=== PATIENT | male | born 1945 | race Caucasian/White ===

== ENCOUNTER → 2019-07-26 | Outpatient (CLI) | payer MEDICARE, OTHER ==
[2019-07-26 12:11] LABS: ANION GAP 7 (5-19); BLOOD UREA NITROGEN 54 mg/dL (7-20); CALCIUM 9.6 mg/dL (8.4-10.2); CARBON DIOXIDE 23 mmol/L (22-30); CHLORIDE 107 mmol/L (98-107); GLUCOSE 91 mg/dL (75-110); POTASSIUM 4.9 mmol/L (3.6-5.0)
[2019-07-26 12:15] LABS: URINE CREATININE 54.6 mg/dL (22-328)
[2019-07-26 12:31] LABS: CREATININE 2.15 mg/dL (0.52-1.25)
== END ==
LOC: OD 10:54
PROVIDERS: ATTEND Internal Medicine Nephrology
DX: N17.9 Acute kidney failure, unspecified (principal)
CPT/HCPCS: 36415; 80048; 82575

== ENCOUNTER 2019-09-03 10:54 | Inpatient (IN) | payer MEDICARE, OTHER ==
[2019-09-03 11:16] LABS: ABSOLUTE BASOPHILS # (AUTO) 0.1 10^3/uL (0.0-0.2); ABSOLUTE EOSINOPHILS # (AUTO) 0.2 10^3/uL (0.0-0.6); ABSOLUTE LYMPHOCYTES (AUTO) 0.6 10^3/uL (0.5-4.7); ABSOLUTE MONOCYTES (AUTO) 1.1 10^3/uL (0.1-1.4); ABSOLUTE NEUT (AUTO) 6.8 10^3/uL (1.7-8.2); BASOPHILS % (AUTO) 0.6 % (0-2); EOSINOPHILS % (AUTO) 1.9 % (0-6); HEMOGLOBIN 11.1 g/dL (13.5-17.0); LYMPHOCYTES % (AUTO) 6.7 % (13-45); MEAN CORPUSCULAR HEMOGLOBIN 26.7 pg (27.0-33.4); MEAN CORPUSCULAR HGB CONC 32.6 g/dL (32.0-36.0); MEAN CORPUSCULAR VOLUME 82 fl (80-97); MONOCYTES % (AUTO) 12.6 % (3-13); PLATELET COUNT 127 10^3/uL (150-450); RED BLOOD COUNT 4.16 10^6/uL (4.35-5.55); RED CELL DISTRIBUTION WIDTH 31.5 % (11.5-14.0); SEGMENTED NEUTROPHILS % (AUTO) 78.2 % (42-78); TOTAL CELLS COUNTED % (AUTO) 100 %; WHITE BLOOD COUNT 8.7 10^3/uL (4.0-10.5)
[2019-09-03 11:18] LABS: VENOUS BLOOD BASE EXCESS -3.4 mmol/L; VENOUS BLOOD PH 7.35 (7.30-7.42)
--- NOTE | 2019-09-03 11:32 | ER Document Report ---
ED General - General Chief Complaint: Shortness Of Breath Stated Complaint: SHORTNESS OF BREATH Time Seen by Provider: 09/03/19 11:08 Primary Care Provider: ADITI WOLF MD [ACTIVE STAFF] - Follow up as needed Information source: Patient Notes: my notes 74-year-old male arrives with acute on chronic COPD with congestive heart failure problems. He reports dyspnea on exertion for several days. He can walk no more than 8 feet before becoming very short of breath. He also has pillow orthopnea and edema of his legs. Patient reports last January he was doing well until he went to [place] and got a demand pacer and the tip pierced his pericardium and 12 hours later he was in [place] getting the leads replaced. He also developed kidney failure and was placed on dialysis for several months with Dr. Morillo. Patient reports his kidneys are now doing quite well. His appetite is fair. He denies any productive cough. He denies any skin rashes. Denies any chest pain or abdominal swelling or back pain or cephalgia or nuchal rigidity or febrile. TRAVEL OUTSIDE OF THE [place] IN LAST 30 DAYS: No - HPI Onset: This morning Past Medical History - Social History Smoking Status: Former Smoker - quit 5 years ago but smoked 1 ppd since 14 yo Cigarette use (# per day): No Chew tobacco use (# tins/day): No Smoking Education Provided: No Frequency of alcohol use: Occasional Drug Abuse: None Lives with: Family Family History: Reviewed & Not Pertinent, COPD Patient has suicidal ideation: No Patient has homicidal ideation: No Review of Systems - Review of Systems Constitutional: No symptoms reported, Malaise, Weakness EENT: No symptoms reported Cardiovascular: See HPI, Dyspnea, Syncope Respiratory: See HPI, Short of breath Gastrointestinal: No symptoms reported Genitourinary: No symptoms reported Male Genitourinary: No symptoms reported Musculoskeletal: No symptoms reported Skin: No symptoms reported Hematologic/Lymphatic: No symptoms reported Neurological/Psychological: No symptoms reported Physical Exam - Vital signs Vitals: Resp BP Pulse Ox 23 H 147/88 H 98 09/03/19 10:54 09/03/19 10:54 09/03/19 10:54 - General General appearance: Alert - HEENT Head: Normocephalic, Atraumatic Eyes: Normal Pupils: PERRL Pharynx: Normal Neck: Normal - Respiratory Respiratory status: No respiratory distress Chest status: Nontender Breath sounds: Decreased air movement Chest palpation: Normal - Cardiovascular Rhythm: Regular Heart sounds: Normal auscultation Murmur: No - Abdominal Inspection: Normal Distension: No distension Bowel sounds: Normal Tenderness: Nontender Organomegaly: No organomegaly - Genitourinary Tenderness: Other - deferred - Back Back: Normal - Extremities General upper extremity: Normal inspection General lower extremity: Edema - +2 pitting from feet to knees - Neurological Neuro grossly intact: Yes Cognition: Normal Orientation: AAOx4 Uriel Coma Scale Eye Opening: Spontaneous [place]riel Coma Scale Verbal: Oriented [place] Coma Scale Motor: Obeys Commands Uriel Coma Scale Total: 15 Speech: Normal Motor strength normal: LUE, RUE, LLE, RLE Sensory: Normal - Psychological Associated symptoms: Normal affect - Skin Skin Temperature: Warm Skin Moisture: Dry Course - Vital Signs Vital signs: Temp Pulse Resp BP Pulse Ox 97.9 F 18 142/84 H 98 09/03/19 11:13 09/03/19 12:01 09/03/19 12:01 09/03/19 12:01 - Laboratory Result Diagrams: 09/03/19 10:59 09/03/19 10:59 Laboratory results interpreted by me: 09/03/19 09/03/19 09/03/19 10:59 10:59 10:59 RBC 4.16 L Hgb 11.1 L Hct 34.0 L MCH 26.7 L RDW 31.5 H Plt Count 127 L Lymph % (Auto) 6.7 L Seg Neutrophils % 78.2 H BUN 40 H Creatinine 2.03 H Est GFR ( Amer) 39 L Est GFR (MDRD) Non-Af 32 L Glucose 123 H NT-Pro-B Natriuret Pep [id number] H Albumin 3.4 L - Diagnostic Test Radiology reviewed: Reports reviewed - EKG Interpretation by Me EKG shows normal: Sinus rhythm Rate: Normal Rhythm: NSR Critical Care Note - Critical Care Note Total time excluding time spent on procedures (mins): 90 Comments: I advised [employer] and she advised telemetry bed Discharge - Discharge Clinical Impression: ZHAO (dyspnea on exertion), Leg edema Pneumonia Qualifiers: Pneumonia type: due to unspecified organism Laterality: right Lung location: lower lobe of lung Qualified Code(s): J18.9 - Pneumonia, unspecified organism CHF (congestive heart failure) Qualifiers: Heart failure type: unspecified Heart failure chronicity: unspecified Qualified Code(s): I50.9 - Heart failure, unspecified Condition: Good Disposition: ADMITTED INPATIENT Unit Admitted: Telemetry Referrals: ADITI WOLF MD [ACTIVE STAFF] - Follow up as needed
--- NOTE | 2019-09-03 11:41 | RADIOLOGY REPORT (SQ) ---
EXAM DESCRIPTION: CHEST SINGLE VIEW IMAGES COMPLETED DATE/TIME: 09/03/2019 11:32 am REASON FOR STUDY: short of breath COMPARISON: None. EXAM PARAMETERS: NUMBER OF VIEWS: One view. TECHNIQUE: Single frontal radiographic view of the chest acquired. RADIATION DOSE: NA LIMITATIONS: None. FINDINGS: LUNGS AND PLEURA: There are bilateral pleural effusions and basilar infiltrates right grea ter than left. MEDIASTINUM AND HILAR STRUCTURES: No masses. Contour normal. HEART AND VASCULAR STRUCTURES: Heart normal in size. Normal vasculature. BONES: No acute findings. HARDWARE: Battery pack and leads are in place. OTHER: No other significant finding. IMPRESSION: Small bilateral pleural effusions and basilar infiltrates right greater than left. Find ings are consistent with pneumonia. TECHNICAL DOCUMENTATION: JOB ID: [id number] 2010 [employer]- All Rights Reserved Reading location - IP/workstation name: [email or web address]
[2019-09-03 11:46] LABS: ALBUMIN 3.4 g/dL (3.5-5.0); ALKALINE PHOSPHATASE 118 U/L (38-126); ANION GAP 7 (5-19); ASPARTATE AMINO TRANSFERASE 33 U/L (17-59); BILIRUBIN,TOTAL 0.8 mg/dL (0.2-1.3); BLOOD UREA NITROGEN 40 mg/dL (7-20); CALCIUM 9.2 mg/dL (8.4-10.2); CARBON DIOXIDE 25 mmol/L (22-30); CHLORIDE 105 mmol/L (98-107); GLUCOSE 123 mg/dL (75-110); POTASSIUM 4.2 mmol/L (3.6-5.0); TOTAL PROTEIN 6.7 g/dL (6.3-8.2)
[2019-09-03 11:47] LABS: ANISOCYTOSIS 4+; HYPOCHROMASIA 1+
[2019-09-03 11:48] LABS: OVALOCYTES 1+; POIKILOCYTOSIS 1+
[2019-09-03 11:49] LABS: SPHEROCYTES SLIGHT; TEAR DROP CELLS SLIGHT
[2019-09-03 11:50] LABS: PLATELET COMMENT DECREASED; SCHISTOCYTES SLIGHT
[2019-09-03] MEDS ORDERED: FUROSEMIDE INJ/PF 20 MG/2 ML SDV IV ONE (12:47)
[2019-09-03] MEDS ORDERED: BUMETANIDE INJ/PF 1 MG/4 ML SDV IV ONE (12:47)
[2019-09-03] MEDS ORDERED: CEFTRIAXONE INJ 1000 MG VIAL IV ONE (12:50)
--- NOTE | 2019-09-03 12:50 | EKG REPORT ---
SEVERITY:- ABNORMAL ECG - SINUS RHYTHM LEFT BUNDLE BRANCH BLOCK : Confirmed by: Lev Stokes MD 03-Sep-2019 12:49:29
[2019-09-03] MEDS ORDERED: AZITHROMYCIN INJ 500 MG VIAL IV ONE (12:51)
[2019-09-03] MEDS ORDERED: MAG HYDROX/AL HYDROX/SIMETH SUSP 30 ML UDCUP PO PRN (13:20)
[2019-09-03] MEDS ORDERED: PROMETHAZINE HCL INJ 25 MG/1 ML VIAL IV PRN (13:20)
[2019-09-03] MEDS ORDERED: ACETAMINOPHEN 325 MG TABLET PO PRN (13:20)
[2019-09-03] MEDS ORDERED: ALBUTEROL SULFATE 0.083% NEB 2.5 MG/3 ML AMPUL NEB PRN (13:27)
[2019-09-03] MEDS: HEPARIN SOD (PORCINE) 5,000 UNIT/ML 1 ML VIAL SUBCUT SCH ×2 (14:06→22:26)
[2019-09-03 14:45] LABS: APPEARANCE,URINE CLEAR; BILIRUBIN,URINE NEGATIVE (NEGATIVE); COLOR,URINE YELLOW; GLUCOSE, URINE NEGATIVE (NEGATIVE); KETONES,URINE NEGATIVE (NEGATIVE); LEUKOCYTE ESTERASE,URINE NEGATIVE (NEGATIVE); NITRITE,URINE NEGATIVE (NEGATIVE); PROTEIN,URINE 30 mg/dL (NEGATIVE); UROBILINOGEN,URINE NEGATIVE mg/dL (<2.0)
--- NOTE | 2019-09-03 18:36 | PDOC H&P ---
History of Present Illness Admission Date/PCP: 09/03/19 13:18 Patient complains of: shortness of breath History of Present Illness: SAIRA ADAMS is a 74 year old male with a past medical history of COPD, CHF, 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 Dialysis cath to right chest wall removed 8 days ago. Patient presented to the emergency department with 3 days of progressively worsening shortness of breath, orthopnea, peripheral edema, and fatigue. He denies fever and productive cough. Denies sick contacts. Evaluation in the emergency department revealed Mild hypertension, tachypnea, mild anemia (hemoglobin 11.1), baseline creatinine/BUN (2.03/40), indeterminent troponin (0.048), and elevated proBNP 32k. EKG shows sinus rhythm with LBBB. CXR small bilateral infiltrate and basilar infiltrates R>L consistent with PNA. Provided IV furosemide, Rocephin and azithromycin, and referred to the hospitalist service for admission and management of the above-stated complaints and finding. Past Medical History Cardiac Medical History: Reports: Congestive Heart Failure, Hypertension Pulmonary Medical History: Reports: Chronic Obstructive Pulmonary Disease (COPD) EENT Medical History: Reports: None Neurological Medical History: Reports: None Endocrine Medical History: Reports: None Renal/ Medical History: Reports: None Malignancy Medical History: Reports: None GI Medical History: Reports: Gastroesophageal Reflux Disease Musculoskeltal Medical History: Reports: None Skin Medical History: Reports: None Psychiatric Medical History: Reports: None Traumatic Medical History: Reports: None Hematology: Reports: Anemia Infectious Medical History: Reports: None Past Surgical History Past Surgical History: Reports: Pacemaker Social History Information Source: Patient Lives with: Family Smoking Status: Former Smoker - quit 5 years ago but smoked 1 ppd since 14 yo Electronic Cigarette use?: No Frequency of Alcohol Use: None Hx Recreational Drug Use: No Drugs: None Hx Prescription Drug Abuse: No - Advance Directive Resuscitation Status: Full Code Family History Family History: Reviewed & Not Pertinent, COPD Parental Family History Reviewed: Yes Children Family History Reviewed: Yes Sibling(s) Family History Reviewed.: Yes Medication/Allergy Home Medications: Albuterol Sulfate [Ventolin 0.083% Neb 2.5 mg/3 ml Ampul] 1 vial NEB Q4HP PRN 09/03/19 Amiodarone HCl [Cordarone 200 mg Tablet] 200 mg PO DAILY 09/03/19 Aspirin [Ecotrin 81 mg EC Tablet] 81 mg PO DAILY 09/03/19 Cetirizine HCl 10 mg PO DAILY 09/03/19 Ferrous Sulfate [Feosol 325 mg Tablet] 325 mg PO DAILY 09/03/19 Fluticasone/Salmeterol [Advair 250-50 Diskus 14 Dose/Diskus] 1 inh IH Q12 09/03/19 Furosemide [Lasix 20 mg Tablet] 20 mg PO DAILY 09/03/19 Ipratropium/Albuterol Sulfate [Duoneb 3 ml Ampul] 1 vial NEB Q8HP PRN 09/03/19 Metoprolol Succinate [Toprol Xl 25 mg Tab.sr] 25 mg PO DAILY 09/03/19 Pantoprazole Sodium 40 mg PO DAILY 09/03/19 Allergies/Adverse Reactions: No Known Allergies Allergy (Verified 09/03/19 13:57) Review of Systems Constitutional: PRESENT: fatigue. ABSENT: chills, fever(s), headache(s), weight gain, weight loss Eyes: ABSENT: visual disturbances Ears: ABSENT: hearing changes Cardiovascular: PRESENT: dyspnea on exertion, orthropnea, other - peripheral edema. ABSENT: chest pain, edema, palpitations Respiratory: PRESENT: dyspnea. ABSENT: cough, hemoptysis Gastrointestinal: ABSENT: abdominal pain, constipation, diarrhea, hematemesis, hematochezia, nausea, vomiting Genitourinary: ABSENT: dysuria, hematuria Musculoskeletal: ABSENT: joint swelling Integumentary: ABSENT: rash, wounds Neurological: ABSENT: abnormal gait, abnormal speech, confusion, dizziness, focal weakness, syncope Psychiatric: ABSENT: anxiety, depression, homidical ideation, suicidal ideation Endocrine: ABSENT: cold intolerance, heat intolerance, polydipsia, polyuria Hematologic/Lymphatic: ABSENT: easy bleeding, easy bruising Physical Exam Vital Signs: Temp Pulse Resp BP Pulse Ox 97.9 F 18 138/101 H 99 09/03/19 11:13 09/03/19 17:01 09/03/19 17:01 09/03/19 17:01 Intake & Output 09/02/19 09/03/19 09/04/19 06:59 06:59 06:59 Output Total 900 Balance -900 Weight 92.986 kg General appearance: PRESENT: no acute distress, cooperative, well-developed, well-nourished Head exam: PRESENT: atraumatic, normocephalic Eye exam: PRESENT: conjunctiva pink, EOMI, PERRLA. ABSENT: scleral icterus Mouth exam: PRESENT: moist, tongue midline Neck exam: ABSENT: carotid bruit, JVD, lymphadenopathy, thyromegaly Respiratory exam: PRESENT: rales, symmetrical, unlabored, other - Supplemental oxygen via nasal cannula. ABSENT: rhonchi, wheezes Cardiovascular exam: PRESENT: RRR, other - bruising to right anterior chest wall at site of prior cath. ABSENT: diastolic murmur, rubs, systolic murmur Pulses: PRESENT: normal dorsalis pedis pul Vascular exam: PRESENT: normal capillary refill GI/Abdominal exam: PRESENT: normal bowel sounds, soft. ABSENT: distended, guarding, mass, organolmegaly, rebound, tenderness Rectal exam: PRESENT: deferred Extremities exam: PRESENT: full ROM. ABSENT: calf tenderness, clubbing, pedal edema Musculoskeletal exam: PRESENT: ambulatory Neurological exam: PRESENT: alert, awake, oriented to person, oriented to place, oriented to time, oriented to situation, CN II-XII grossly intact. ABSENT: motor sensory deficit Psychiatric exam: PRESENT: appropriate affect, normal mood. ABSENT: homicidal ideation, suicidal ideation Skin exam: PRESENT: dry, intact, warm. ABSENT: cyanosis, rash Results Laboratory Results: 09/03/19 10:59 09/03/19 10:59 09/03/19 09/03/19 09/03/19 10:59 10:59 10:59 WBC 8.7 RBC 4.16 L Hgb 11.1 L Hct 34.0 L MCV 82 MCH 26.7 L MCHC 32.6 RDW 31.5 H Plt Count 127 L Seg Neutrophils % 78.2 H VBG pH VBG pCO2 VBG HCO3 VBG Base Excess Sodium 137.4 Potassium 4.2 Chloride 105 Carbon Dioxide 25 Anion Gap 7 BUN 40 H Creatinine 2.03 H Est GFR ( Amer) 39 L Glucose 123 H Lactic Acid 1.7 Calcium 9.2 Total Bilirubin 0.8 AST 33 Alkaline Phosphatase 118 Total Protein 6.7 Albumin 3.4 L Urine Color Urine Appearance Urine pH Ur Specific [place] Urine Protein Urine Glucose (UA) Urine Ketones Urine Blood Urine Nitrite Ur Leukocyte Esterase Urine WBC (Auto) Urine RBC (Auto) 09/03/19 09/03/19 10:59 14:00 WBC RBC Hgb Hct MCV MCH MCHC RDW Plt Count Seg Neutrophils % VBG pH 7.35 VBG pCO2 41.0 VBG HCO3 22.0 VBG Base Excess -3.4 Sodium Potassium Chloride Carbon Dioxide Anion Gap BUN Creatinine Est GFR ( Amer) Glucose Lactic Acid Calcium Total Bilirubin AST Alkaline Phosphatase Total Protein Albumin Urine Color YELLOW Urine Appearance CLEAR Urine pH 5.0 Ur Specific [place] 1.010 Urine Protein 30 H Urine Glucose (UA) NEGATIVE Urine Ketones NEGATIVE Urine Blood NEGATIVE Urine Nitrite NEGATIVE Ur Leukocyte Esterase NEGATIVE Urine WBC (Auto) 1 Urine RBC (Auto) 0 09/03/19 09/03/19 10:59 10:59 Troponin I 0.048 NT-Pro-B Natriuret Pep [id number] H Impressions: Chest X-Ray 09/03/19 11:03 IMPRESSION: Small bilateral pleural effusions and basilar infiltrates right greater than left. Findings are consistent with pneumonia. Assessment and Plan - Diagnosis (1) Pneumonia Qualifiers: Pneumonia type: due to unspecified organism Laterality: right Lung location: lower lobe of lung Qualified Code(s): J18.9 - Pneumonia, unspecified organism Is this a current diagnosis for this admission?: Yes Plan: Blood cultures pending. Sputum cultures pending Patient is provided supplemental oxygen as needed maintain saturations greater than 89%. Patient is empirically placed on IV vancomycin and Zosyn. Scheduled and as needed nebulizer treatments. Mucinex twice daily. Pulmonary toilet is encouraged with incentive spirometer, flutter valve, early ambulation. (2) CHF (congestive heart failure) Qualifiers: Heart failure type: diastolic Heart failure chronicity: unspecified Qualified Code(s): I50.30 - Unspecified diastolic (congestive) heart failure Is this a current diagnosis for this admission?: Yes Plan: Monitor on continuous cardiac telemetry. Continue home medication regiment once reconciled. Diurese with IV furosemide twice daily. Daily weights, strict I&Os Cardiac diet. Request recent echocardiogram (last month at [facility]). (3) GERD (gastroesophageal reflux disease) Is this a current diagnosis for this admission?: Yes Plan: Continue Protonix. (4) Obesity (BMI 30.0-34.9) Is this a current diagnosis for this admission?: Yes Plan: BMI 31.2 Lifestyle modification and dietary discretion is advised. (5) COPD (chronic obstructive pulmonary disease) Qualifiers: COPD type: unspecified COPD Qualified Code(s): J44.9 - Chronic obstructive pulmonary disease, unspecified Is this a current diagnosis for this admission?: Yes Plan: Without exacerbation at this time. Supplemental oxygen and nebulizer treatments as above. Mucinex twice daily. Antibiotics as above. No indications for steroid therapy - Time Time Spent with patient: 35 or more minutes Medications reviewed and adjusted accordingly: Yes Anticipated discharge: Home - Inpatient Certification Based on my medical assessment, after consideration of the patient's com orbidities, presenting symptoms, or acuity I expect that the services needed warrant INPATIENT care.: Yes I certify that my determination is in accordance with my understanding of Medicare's requirements for reasonable and necessary INPATIENT services [42 CFR 412.3e].: Yes Medical Necessity: Need For Continuous Telemetry Monitoring, Need for IV Antibiotics
[2019-09-03] MEDS: IPRATROPIUM/ALBUTEROL 0.5-2.5 MG/3 ML AMPUL NEB SCH (20:28)
[2019-09-03] MEDS: GUAIFENESIN 600 MG TABLET.SA PO SCH (22:25)
[2019-09-03] MEDS: FUROSEMIDE INJ/PF 20 MG/2 ML SDV IV SCH (22:26)
[2019-09-04] MEDS ORDERED: PANTOPRAZOLE SODIUM 20 MG TABLET.DR PO SCH ×2 (06:00)
[2019-09-04 06:11] LABS: ANION GAP 8 (5-19); BLOOD UREA NITROGEN 43 mg/dL (7-20); CARBON DIOXIDE 22 mmol/L (22-30); CHLORIDE 107 mmol/L (98-107); GLUCOSE 94 mg/dL (75-110); POTASSIUM 4.2 mmol/L (3.6-5.0)
[2019-09-04] MEDS: IPRATROPIUM/ALBUTEROL 0.5-2.5 MG/3 ML AMPUL NEB SCH ×2 (07:55→20:03)
[2019-09-04] MEDS: HEPARIN SOD (PORCINE) 5,000 UNIT/ML 1 ML VIAL SUBCUT SCH ×3 (09:32→21:07)
[2019-09-04] MEDS: PANTOPRAZOLE SODIUM 40 MG TABLET.DR PO SCH (09:36)
[2019-09-04] MEDS: GUAIFENESIN 600 MG TABLET.SA PO SCH ×2 (09:36→21:06)
[2019-09-04] MEDS: FUROSEMIDE INJ/PF 20 MG/2 ML SDV IV SCH ×2 (09:36→21:06)
[2019-09-04] MEDS: DOCUSATE SODIUM 100 MG CAPSULE PO SCH (09:36)
[2019-09-04] MEDS: ASPIRIN 81 MG TABLET, ENT COATED PO SCH (09:36)
[2019-09-04] MEDS ORDERED: AZITHROMYCIN 500 MG in DEXTROSE 5%-WATER 250 ML IV SCH (10:00)
[2019-09-04] MEDS ORDERED: CEFTRIAXONE 1 GM/D5W RTU 1 GM/50 ML RTUPB IV SCH (12:00)
--- NOTE | 2019-09-04 14:20 | PDOC PROGRESS REPORT ---
Subjective Progress Note for:: 09/04/19 Subjective:: Patient does not have pneumonia. There is nothing to suggest that he has pneumonia or did have pneumonia. He is afebrile and has no history of fever at home, normal WBC, no respiratory symptoms at all other than shortness of breath/ZHAO, no cough or sputum production. I reviewed the chest x-ray personally and it is not consistent with pneumonia, rather interstitial fluid infiltrates most likely related to CHF. There is no indication for antibiotics and I have stopped these. Per patient, he feels exactly how he has felt in the past with prior CHF exacerbations. He has no new complaints today. We will keep him on IV Lasix for 1 more day and likely discharge him tomorrow on oral Lasix. This will be increased to 20 mg twice daily instead of daily. Reason For Visit: ZHAO(DYSPNEA ON EXERTION),LEG EDEMA,PNEUMONIA,CHF Physical Exam Vital Signs: Temp Pulse Resp BP Pulse Ox 97.6 F 81 17 116/71 98 09/04/19 11:24 09/04/19 11:24 09/04/19 11:24 09/04/19 11:24 09/04/19 11:24 Intake & Output 09/03/19 09/04/19 09/05/19 06:59 06:59 06:59 Intake Total 370 Output Total 900 1100 Balance -900 -730 Weight 92.9 kg 92.9 kg General appearance: PRESENT: no acute distress, well-developed, well-nourished Head exam: PRESENT: atraumatic, normocephalic Eye exam: PRESENT: conjunctiva pink Mouth exam: PRESENT: moist Respiratory exam: PRESENT: clear to auscultation gail. ABSENT: rales, rhonchi, wheezes Cardiovascular exam: PRESENT: RRR. ABSENT: diastolic murmur, rubs, systolic m urmur GI/Abdominal exam: PRESENT: normal bowel sounds, soft. ABSENT: distended, guarding, mass, organolmegaly, rebound, tenderness Extremities exam: PRESENT: pedal edema, +1 edema Neurological exam: PRESENT: alert, awake, oriented to person, oriented to place, oriented to time, oriented to situation Psychiatric exam: PRESENT: appropriate affect, normal mood Skin exam: PRESENT: dry, intact, warm Results Laboratory Results: 09/03/19 10:59 09/04/19 05:41 09/03/19 09/04/19 14:00 05:41 Sodium 137.0 Potassium 4.2 Chloride 107 Carbon Dioxide 22 Anion Gap 8 BUN 43 H Creatinine 2.02 H Est GFR ( Amer) 39 L Glucose 94 Calcium 9.0 Magnesium 2.4 H Urine Color YELLOW Urine Appearance CLEAR Urine pH 5.0 Ur Specific [place] 1.010 Urine Protein 30 H Urine Glucose (UA) NEGATIVE Urine Ketones NEGATIVE Urine Blood NEGATIVE Urine Nitrite NEGATIVE Ur Leukocyte Esterase NEGATIVE Urine WBC (Auto) 1 Urine RBC (Auto) 0 09/03/19 09/03/19 10:59 10:59 Troponin I 0.048 NT-Pro-B Natriuret Pep [id number] H Impressions: Chest X-Ray 09/03/19 11:03 IMPRESSION: Small bilateral pleural effusions and basilar infiltrates right greater than left. Findings are consistent with pneumonia. Assessment and Plan - Diagnosis (1) CHF (congestive heart failure) Qualifiers: Heart failure type: diastolic Heart failure chronicity: unspecified Qualified Code(s): I50.30 - Unspecified diastolic (congestive) heart failure Is this a current diagnosis for this admission?: Yes Plan: -Monitor on continuous cardiac telemetry. -Continue home medication regiment once reconciled. -Diurese with IV furosemide twice daily. Transition to 20 mg p.o. twice daily at discharge -Daily weights, strict I&Os -Cardiac diet. -Request recent echocardiogram (last month at [facility]). (2) COPD (chronic obstructive pulmonary disease) Qualifiers: COPD type: unspecified COPD Qualified Code(s): J44.9 - Chronic obstructive pulmonary disease, unspecified Is this a current diagnosis for this admission?: Yes Plan: -Without exacerbation at this time. -Supplemental oxygen and nebulizer treatments as above. -Mucinex twice daily. -No indications for steroid therapy or antibiotics (3) ZHAO (dyspnea on exertion) Is this a current diagnosis for this admission?: Yes (4) GERD (gastroesophageal reflux disease) Is this a current diagnosis for this admission?: Yes Plan: -home meds (5) Leg edema Is this a current diagnosis for this admission?: Yes (6) Obesity (BMI 30.0-34.9) Is this a current diagnosis for this admission?: Yes - Time Time Spent with patient: 25-34 minutes Medications reviewed and adjusted accordingly: Yes Anticipated discharge: Home Within: within 24 hours - Inpatient Certification Based on my medical assessment, after consideration of the patient's comorbidities, presenting symptoms, or acuity I expect that the services needed warrant INPATIENT care.: Yes I certify that my determination is in accordance with my understanding of Medicare's requirements for reasonable and necessary INPATIENT services [42 CFR 412.3e].: Yes Medical Necessity: Significant Comorbidiites Make Outpatient Treatment Too Risky, Need Close Monitoring Due to Risk of Patient Decompensation, Risk of Complication if Not Cared For in Hospital, Risk of Diagnosis Which Will Require Inpatient Eval/Care/Monitoring
[2019-09-04] MEDS: CETIRIZINE 10 MG TABLET PO SCH (14:48)
[2019-09-04] MEDS ORDERED: AMIODARONE HCL 200 MG TABLET PO ONE (19:30)
[2019-09-04] MEDS ORDERED: FLUTICASONE/VILANTEROL 200-25 MCG/DOSE IH ONE (19:30)
[2019-09-04] MEDS ORDERED: FERROUS SULFATE 325 MG TABLET PO ONE (20:00)
[2019-09-05] MEDS: PANTOPRAZOLE SODIUM 40 MG TABLET.DR PO SCH (05:38)
[2019-09-05] MEDS: HEPARIN SOD (PORCINE) 5,000 UNIT/ML 1 ML VIAL SUBCUT SCH (05:38)
[2019-09-05] MEDS ORDERED: FERROUS SULFATE 325 MG TABLET PO SCH (08:00)
[2019-09-05] MEDS ORDERED: AMIODARONE HCL 200 MG TABLET PO SCH (08:00)
[2019-09-05] MEDS: IPRATROPIUM/ALBUTEROL 0.5-2.5 MG/3 ML AMPUL NEB SCH (08:16)
[2019-09-05] MEDS ORDERED: FLUTICASONE/VILANTEROL 200-25 MCG/DOSE IH SCH (10:00)
[2019-09-05] MEDS: DOCUSATE SODIUM 100 MG CAPSULE PO SCH (10:17)
[2019-09-05] MEDS: GUAIFENESIN 600 MG TABLET.SA PO SCH (10:17)
[2019-09-05] MEDS: ASPIRIN 81 MG TABLET, ENT COATED PO SCH (10:17)
[2019-09-05] MEDS: CETIRIZINE 10 MG TABLET PO SCH (10:17)
[2019-09-05] MEDS: FUROSEMIDE INJ/PF 20 MG/2 ML SDV IV SCH (10:18)
[2019-09-05 12:42] VITALS: BP 122/71
--- NOTE | 2019-09-05 16:22 | PDOC DISCHARGE SUMMARY ---
Impression - Admit/DC Date/PCP Admission Date/Primary Care Provider: 09/03/19 13:18 Discharge Date: 09/05/19 - Discharge Diagnosis (1) CHF (congestive heart failure) Is this a current diagnosis for this admission?: Yes (2) COPD (chronic obstructive pulmonary disease) Is this a current diagnosis for this admission?: Yes (3) ZHAO (dyspnea on exertion) Is this a current diagnosis for this admission?: Yes (4) GERD (gastroesophageal reflux disease) Is this a current diagnosis for this admission?: Yes (5) Leg edema Is this a current diagnosis for this admission?: Yes (6) Obesity (BMI 30.0-34.9) Is this a current diagnosis for this admission?: Yes - Additional Information Resuscitation Status: Full Code Discharge Diet: Regular Discharge Activity: Activity As Tolerated Referrals: ADITI WOLF MD [ACTIVE STAFF] - Follow up as needed (F/U 7-10 DAYS ) CATY PACK MD [NO LOCAL MD] - (F/U 7-10 DAYS) Prescriptions: Furosemide [Lasix 20 mg Tablet] 20 mg PO BID #60 tab Home Medications: Albuterol Sulfate [Ventolin Hfa 8 gm Mdi] 1 puff IH Q4HP PRN 09/03/19 Amiodarone HCl [Cordarone 200 mg Tablet] 200 mg PO QAM 09/03/19 [employer] Eye Vitamin 1 tab PO BID 09/03/19 Aspirin [Ecotrin 81 mg EC Tablet] 81 mg PO QAM 09/03/19 Atorvastatin Calcium [Lipitor 80 mg Tablet] 80 mg PO QHS 09/03/19 Carboxymethylcellulose Sodium [Refresh Tears] 1 drop OS DAILYP PRN 09/03/19 Cetirizine HCl 10 mg PO QAM 09/03/19 Ferrous Sulfate [Feosol 325 mg Tablet] 325 mg PO QAM 09/03/19 Fluticasone Propionate [Flonase Nasal Sulphur 50 Mcg/Sulphur 16 gm] 1 spray NASL DAILY 09/03/19 Fluticasone/Salmeterol [Advair 250-50 Diskus 14 Dose/Diskus] 1 inh IH Q12 09/03/19 Amiodarone HCl [Cordarone 200 mg Tablet] 200 mg PO QAM tablet 09/05/19 Furosemide [Lasix 20 mg Tablet] 20 mg PO BID #60 tab 09/05/19 History of Present Illiness History of Present Illness: Per admitting provider: "SAIRA ADAMS is a 74 year old male with a past medical history of COPD, CHF, 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 Dialysis cath to right chest wall removed 8 days ago. Patient presented to the emergency department with 3 days of progressively worsening shortness of breath, orthopnea, peripheral edema, and fatigue. He denies fever and productive cough. Denies sick contacts. Evaluation in the emergency department revealed Mild hypertension, tachypnea, mild anemia (hemoglobin 11.1), baseline creatinine/BUN (2.03/40), indeterminent troponin (0.048), and elevated proBNP 32k. EKG shows sinus rhythm with LBBB. CXR small bilateral infiltrate and basilar infiltrates R>L consistent with PNA. Provided IV furosemide, Rocephin and azithromycin, and referred to the hospitalist service for admission and management of the above-stated complaints and finding." Hospital Course Hospital Course: Patient minute with CHF exacerbation without COPD exacerbation, diuresed with IV Lasix for 2 days and then transition to oral Lasix at 20 mg twice daily instead of the 20 mg daily he was taking at home prior to admission. Other home medications continued at same doses. Patient improved substantially from admission. He does not and did not have pneumonia. Antibiotics were stopped after admission and they were not continued at discharge. 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 Patient does not wish to stay for any further testing or consultation. Physical Exam Vital Signs: Temp Pulse Resp BP Pulse Ox 97.3 F 80 14 128/61 H 96 09/05/19 11:51 09/05/19 11:51 09/05/19 11:51 09/05/19 11:51 09/05/19 11:51 Intake & Output 09/04/19 09/05/19 09/06/19 06:59 06:59 06:59 Intake Total 1810 240 Output Total 900 2400 350 Balance -900 -590 -110 Weight 92.9 kg 92.9 kg General appearance: PRESENT: no acute distress, well-developed, well-nourished Head exam: PRESENT: atraumatic, normocephalic Eye exam: PRESENT: conjunctiva pink Mouth exam: PRESENT: moist Respiratory exam: PRESENT: clear to auscultation gail. ABSENT: rales, rhonchi, wheezes Cardiovascular exam: PRESENT: RRR. ABSENT: diastolic murmur, rubs, systolic murmur GI/Abdominal exam: PRESENT: normal bowel sounds, soft. ABSENT: distended, guarding, mass, organolmegaly, rebound, tenderness Extremities exam: PRESENT: pedal edema - Trace Neurological exam: PRESENT: alert, awake, oriented to person, oriented to place, oriented to time, oriented to situation Psychiatric exam: PRESENT: appropriate affect, normal mood Skin exam: PRESENT: dry, intact, warm Results Laboratory Results: WBC 8.7 10^3/uL (4.0-10.5) 09/03/19 10:59 RBC 4.16 10^6/uL (4.35-5.55) L 09/03/19 10:59 Hgb 11.1 g/dL (13.5-17.0) L 09/03/19 10:59 Hct 34.0 % (37.9-51.0) L 09/03/19 10:59 MCV 82 fl (80-97) 09/03/19 10:59 MCH 26.7 pg (27.0-33.4) L 09/03/19 10:59 MCHC 32.6 g/dL (32.0-36.0) 09/03/19 10:59 RDW 31.5 % (11.5-14.0) H 09/03/19 10:59 Plt Count 127 10^3/uL (150-450) L 09/03/19 10:59 Lymph % (Auto) 6.7 % (13-45) L 09/03/19 10:59 Osborne % (Auto) 12.6 % (3-13) 09/03/19 10:59 Eos % (Auto) 1.9 % (0-6) 09/03/19 10:59 Baso % (Auto) 0.6 % (0-2) 09/03/19 10:59 Absolute Neuts (auto) 6.8 10^3/uL (1.7-8.2) 09/03/19 10:59 Absolute Lymphs (auto) 0.6 10^3/uL (0.5-4.7) 09/03/19 10:59 Absolute Monos (auto) 1.1 10^3/uL (0.1-1.4) 09/03/19 10:59 Absolute Eos (auto) 0.2 10^3/uL (0.0-0.6) 09/03/19 10:59 Absolute Basos (auto) 0.1 10^3/uL (0.0-0.2) 09/03/19 10:59 Seg Neutrophils % 78.2 % (42-78) H 09/03/19 10:59 Platelet Comment DECREASED 09/03/19 10:59 Hypochromasia 1+ 09/03/19 10:59 Poikilocytosis 1+ 09/03/19 10:59 Anisocytosis 4+ 09/03/19 10:59 Microcytosis SLIGHT 09/03/19 10:59 Spherocytes SLIGHT 09/03/19 10:59 Tear Drop Cells SLIGHT 09/03/19 10:59 Ovalocytes 1+ 09/03/19 10:59 Schistocytes SLIGHT 09/03/19 10:59 VBG pH 7.35 (7.30-7.42) 09/03/19 10:59 VBG pCO2 41.0 mmHg (35-63) 09/03/19 10:59 VBG HCO3 22.0 mmol/L (20-32) 09/03/19 10:59 VBG Base Excess -3.4 mmol/L 09/03/19 10:59 Sodium 137.0 mmol/L (137-145) 09/04/19 05:41 Potassium 4.2 mmol/L (3.6-5.0) 09/04/19 05:41 Chloride 107 mmol/L (98-107) 09/04/19 05:41 Carbon Dioxide 22 mmol/L (22-30) 09/04/19 05:41 Anion Gap 8 (5-19) 09/04/19 05:41 BUN 43 mg/dL (7-20) H 09/04/19 05:41 Creatinine 2.02 mg/dL (0.52-1.25) H 09/04/19 05:41 Est GFR ( Amer) 39 (>60) L 09/04/19 05:41 Est GFR (MDRD) Non-Af 32 (>60) L 09/04/19 05:41 Glucose 94 mg/dL (75-110) 09/04/19 05:41 Lactic Acid 1.7 mmol/L (0.7-2.1) 09/03/19 10:59 Calcium 9.0 mg/dL (8.4-10.2) 09/04/19 05:41 Magnesium 2.4 mg/dL (1.6-2.3) H 09/04/19 05:41 Total Bilirubin 0.8 mg/dL (0.2-1.3) 09/03/19 10:59 Direct Bilirubin 0.0 mg/dL (0.0-0.4) 09/03/19 10:59 Neonat Total Bilirubin Not Reportable 09/03/19 10:59 Neonat Direct Bilirubin Not Reportable 09/03/19 10:59 Neonat Indirect Bili Not Reportable 09/03/19 10:59 AST 33 U/L (17-59) 09/03/19 10:59 ALT 25 U/L (<50) 09/03/19 10:59 Alkaline Phosphatase 118 U/L (38-126) 09/03/19 10:59 Troponin I 0.048 ng/mL 09/03/19 10:59 NT-Pro-B Natriuret Pep 11597 pg/mL (<450) H 09/03/19 10:59 Total Protein 6.7 g/dL (6.3-8.2) 09/03/19 10:59 Albumin 3.4 g/dL (3.5-5.0) L 09/03/19 10:59 Urine Color YELLOW 09/03/19 14:00 Urine Appearance CLEAR 09/03/19 14:00 Urine pH 5.0 (5.0-9.0) 09/03/19 14:00 Ur Specific Wiseman 1.010 09/03/19 14:00 Urine Protein 30 mg/dL (NEGATIVE) H 09/03/19 14:00 Urine Glucose (UA) NEGATIVE mg/dL (NEGATIVE) 09/03/19 14:00 Urine Ketones NEGATIVE mg/dL (NEGATIVE) 09/03/19 14:00 Urine Blood NEGATIVE (NEGATIVE) 09/03/19 14:00 Urine Nitrite NEGATIVE (NEGATIVE) 09/03/19 14:00 Urine Bilirubin NEGATIVE (NEGATIVE) 09/03/19 14:00 Urine Urobilinogen NEGATIVE mg/dL (<2.0) 09/03/19 14:00 Ur Leukocyte Esterase NEGATIVE (NEGATIVE) 09/03/19 14:00 Urine WBC (Auto) 1 /HPF 09/03/19 14:00 Urine RBC (Auto) 0 /HPF 09/03/19 14:00 Urine Bacteria (Auto) TRACE /HPF 09/03/19 14:00 Squamous Epi Cells Auto <1 /HPF 09/03/19 14:00 Urine Mucus (Auto) RARE /LPF 09/03/19 14:00 Urine Ascorbic Acid 20 (NEGATIVE) H 09/03/19 14:00 09/03/19 09/03/19 10:59 10:59 Troponin I 0.048 NT-Pro-B Natriuret Pep 64148 H Impressions: Chest X-Ray 09/03/19 11:03 IMPRESSION: Small bilateral pleural effusions and basilar infiltrates right greater than left. Findings are consistent with pneumonia. Plan Time Spent: Greater than 30 Minutes Stroke Is this a Stroke Patient?: No Acute Heart Failure - Is this a Heart Failure Patient?: Yes Documentation of LVEF assessment?: Planned for after discharge LVEF < 40%?: No- if no continue to question #3 3. Anticoagulant therapy for permanect/persistent/paraoxysmal Afib or Aflutter: N/A Follow-up Appointment scheduled within 7 days?: Yes
== END 2019-09-05 13:27 | disposition home or self-care (01) | DRG 291 ==
LOC: ER 10:54 → EH 13:18 → 4N 18:21
PROVIDERS: ADMIT Internal Medicine; ATTEND Internal Medicine
DX: I11.0 Hypertensive heart disease with heart failure (principal); I50.31 Acute diastolic (congestive) heart failure; D64.9 Anemia, unspecified; J44.9 Chronic obstructive pulmonary disease, unspecified; E66.9 Obesity, unspecified; K21.9 Gastro-esophageal reflux disease without esophagitis; Z87.891 Personal history of nicotine dependence; Z79.82 Long term (current) use of aspirin; Z95.810 Presence of automatic (implantable) cardiac defibrillator; Z68.31 Body mass index [BMI] 31.0-31.9, adult
CPT/HCPCS: 36415; 71045; 80048; 80053; 81001; 82803; 83605; 83735; 83880; 84484; 85025; 87040; 93005; 93010; 94640; 99291; 99292; J0456; J0696; J1940; J3490; J7060; J7620

== ENCOUNTER → 2020-01-14 | Outpatient (CLI) | payer MEDICARE, OTHER ==
[2020-01-14 13:36] LABS: ABSOLUTE EOSINOPHILS # (AUTO) 0.1 10^3/uL (0.0-0.6); ABSOLUTE LYMPHOCYTES (AUTO) 0.9 10^3/uL (0.5-4.7); ABSOLUTE MONOCYTES (AUTO) 0.7 10^3/uL (0.1-1.4); ABSOLUTE NEUT (AUTO) 5.1 10^3/uL (1.7-8.2); BASOPHILS % (AUTO) 0.5 % (0-2); EOSINOPHILS % (AUTO) 2.1 % (0-6); HEMATOCRIT 43.1 % (37.9-51.0); HEMOGLOBIN 14.7 g/dL (13.5-17.0); LYMPHOCYTES % (AUTO) 13.6 % (13-45); MEAN CORPUSCULAR HEMOGLOBIN 31.1 pg (27.0-33.4); MEAN CORPUSCULAR HGB CONC 34.2 g/dL (32.0-36.0); MEAN CORPUSCULAR VOLUME 91 fl (80-97); MONOCYTES % (AUTO) 9.9 % (3-13); PLATELET COUNT 143 10^3/uL (150-450); RED BLOOD COUNT 4.74 10^6/uL (4.35-5.55); RED CELL DISTRIBUTION WIDTH 18.3 % (11.5-14.0); SEGMENTED NEUTROPHILS % (AUTO) 73.9 % (42-78); TOTAL CELLS COUNTED % (AUTO) 100 %; WHITE BLOOD COUNT 6.9 10^3/uL (4.0-10.5)
[2020-01-14 13:36] LABS: APPEARANCE,URINE CLEAR; BILIRUBIN,URINE NEGATIVE (NEGATIVE); COLOR,URINE YELLOW; GLUCOSE, URINE NEGATIVE (NEGATIVE); KETONES,URINE NEGATIVE (NEGATIVE); LEUKOCYTE ESTERASE,URINE NEGATIVE (NEGATIVE); NITRITE,URINE NEGATIVE (NEGATIVE); PROTEIN,URINE NEGATIVE (NEGATIVE); URINE SPECIFIC GRAVITY 1.006; UROBILINOGEN,URINE NEGATIVE mg/dL (<2.0)
[2020-01-14 13:53] LABS: ALBUMIN 4.2 g/dL (3.5-5.0); ANION GAP 8 (5-19); BLOOD UREA NITROGEN 38 mg/dL (7-20); CALCIUM 9.5 mg/dL (8.4-10.2); CARBON DIOXIDE 32 mmol/L (22-30); CHLORIDE 100 mmol/L (98-107); GLUCOSE 93 mg/dL (75-110); PHOSPHORUS 2.9 mg/dL (2.5-4.5); POTASSIUM 3.8 mmol/L (3.6-5.0)
[2020-01-15 13:37] LABS: CREATININE URINE 60.2 mg/dL (Not Estab.); MICROALBUMIN URINE 50.6 ug/mL (Not Estab.)
== END ==
LOC: OD 13:05
PROVIDERS: ATTEND Internal Medicine Nephrology
DX: N18.4 Chronic kidney disease, stage 4 (severe) (principal); D63.1 Anemia in chronic kidney disease
CPT/HCPCS: 36415; 80069; 81001; 82043; 82306; 82570; 82728; 83540; 83550; 83970; 85025

== ENCOUNTER 2020-05-11 08:33 | Day surgery (SDC) | payer MEDICARE, OTHER ==
[~2020-05-11 08:33] MED LIST: CHONDR SU A NA/HYALUR INTRAOC KIT (SURGICARE) ONE; DORZOLAMIDE HCL 2%/TIMOLOL MALEAT 0.5% OPH SOLN 10 ML OS PRN; EPINEPHRINE INJ/PF 1 MG/1 ML AMPULE ONE; KETOROLAC TROMETHAMINE 0.45% 4 DROP/0.4 ML DROPERETTE OS PRN; LIDOCAINE 1%/PHENYLEPHRINE 1.5% 1 ML VIAL ONE; PREDNISOLONE ACETATE 1% OPH SUSP 5 ML OS PRN
[2020-05-11] MEDS ORDERED: ONDANSETRON HCL INJ/PF 4 MG/2 ML SDV ONE (08:38)
[2020-05-11] MEDS ORDERED: FENTANYL CITRATE INJ/PF 100 MCG/2 ML AMPUL ONE (08:38)
[2020-05-11] MEDS ORDERED: MIDAZOLAM 2 MG/2 ML INJ ONE (08:38)
[2020-05-11] MEDS: TETRACAINE HCL 0.5% OPH SOLN 4 ML OS PRN ×3 (09:12→09:45)
[2020-05-11] MEDS: CYCLOPENTOLATE 0.2%/PHENYLEPHRINE 1% OPH SOLN 2 ML OS PRN ×3 (09:12→09:24)
[2020-05-11] MEDS: BESIFLOXACIN HCL 0.6% OPH SUSP 5 ML BOTTLE OS PRN ×3 (09:13→10:10)
[2020-05-11] MEDS: TROPICAMIDE 1% OPH SOLN 15 ML OS PRN ×3 (09:13→09:24)
--- NOTE | 2020-05-11 11:59 | Operative Report ---
[facility]ative Report-[facility] Operative Report: DATE OF SURGERY: 05/11/2020 PREOPERATIVE DIAGNOSIS: Cataracts, left eye POSTOPERATIVE DIAGNOSIS: Cataract, left eye OPERATION: Cataract extraction with insertion of an toric IOL of the left eye. Intraocular Lens Model: [20.0 SN 6 AT 5 lens rotated to 5 degrees] Patient underwent surgery for difficulty seeing small print SURGEON: Smith Etienne MD ANESTHESIA: Topical PROCEDURE: After obtaining appropriate consent, the patient's left eye was prepped and draped in a sterile fashion as well as the surgeon in the sterile manner and cataract surgery was started. First a paracentesis blade was used to make a side-port incision. Viscoelastic was used to inflate the anterior chamber. Next a 2.4 mm incision was made with a 2.4 mm blade, clear corneal temporarily. A continuous capsulorrhexis was made using a cystotome and Utrata forceps. Following this hydrodissection was carried out to make the lens fully loose and mobile and it was rotated 90 degrees. Following this, a divide and conquer technique was used to phacoemulsify the lens. The remaining cortex was removed with an irrigation/aspiration. Provisc was instilled into the capsular bag to inflate the bag.The intraocular lens was placed. The remaining viscoelastic material was removed with irrigation/aspiration. Following this, the incision was found to be watertight. Besivance and Cosopt was instilled into the eye and a protective shield was placed over the eye. The patient was returned to the postoperative recovery in a stable condition.
== END 2020-05-11 10:43 | disposition home or self-care (01) ==
LOC: SC 08:33
PROVIDERS: ATTEND Internal Medicine
DX: H25.812 Combined forms of age-related cataract, left eye (principal); Z90.01 Acquired absence of eye; H35.362 Drusen (degenerative) of macula, left eye; H02.005 Unspecified entropion of left lower eyelid; I10 Essential (primary) hypertension; J44.9 Chronic obstructive pulmonary disease, unspecified; F17.210 Nicotine dependence, cigarettes, uncomplicated; Z95.810 Presence of automatic (implantable) cardiac defibrillator; I25.2 Old myocardial infarction; Z86.16 Personal history of COVID-19
CPT/HCPCS: 66984; 00142; V2787; J2250; J3490 ×2; A9270; J0171; J3010; J2405; 142

== ENCOUNTER → 2020-05-19 | Outpatient (CLI) | payer MEDICARE, OTHER ==
[2020-05-19 12:53] LABS: ABSOLUTE EOSINOPHILS # (AUTO) 0.2 10^3/uL (0.0-0.6); ABSOLUTE MONOCYTES (AUTO) 1.1 10^3/uL (0.1-1.4); ABSOLUTE NEUT (AUTO) 4.7 10^3/uL (1.7-8.2); BASOPHILS % (AUTO) 0.6 % (0-2); EOSINOPHILS % (AUTO) 2.4 % (0-6); HEMOGLOBIN 14.4 g/dL (13.5-17.0); LYMPHOCYTES % (AUTO) 14.8 % (13-45); MEAN CORPUSCULAR HEMOGLOBIN 32.2 pg (27.0-33.4); MEAN CORPUSCULAR HGB CONC 34.2 g/dL (32.0-36.0); MEAN CORPUSCULAR VOLUME 94 fl (80-97); MONOCYTES % (AUTO) 16.1 % (3-13); PLATELET COUNT 132 10^3/uL (150-450); RED BLOOD COUNT 4.47 10^6/uL (4.35-5.55); RED CELL DISTRIBUTION WIDTH 13.9 % (11.5-14.0); SEGMENTED NEUTROPHILS % (AUTO) 66.1 % (42-78); TOTAL CELLS COUNTED % (AUTO) 100 %; WHITE BLOOD COUNT 7.1 10^3/uL (4.0-10.5)
[2020-05-19 13:30] LABS: ANION GAP 7 (5-19); BLOOD UREA NITROGEN 43 mg/dL (7-20); CALCIUM 9.9 mg/dL (8.4-10.2); CARBON DIOXIDE 31 mmol/L (22-30); CHLORIDE 103 mmol/L (98-107); GLUCOSE 88 mg/dL (75-110); PHOSPHORUS 3.5 mg/dL (2.5-4.5); POTASSIUM 5.4 mmol/L (3.6-5.0)
[2020-05-19 13:46] LABS: APPEARANCE,URINE CLEAR; BILIRUBIN,URINE NEGATIVE (NEGATIVE); COLOR,URINE YELLOW; GLUCOSE, URINE NEGATIVE (NEGATIVE); KETONES,URINE NEGATIVE (NEGATIVE); PROTEIN,URINE NEGATIVE (NEGATIVE); URINE SPECIFIC GRAVITY 1.011; UROBILINOGEN,URINE NEGATIVE mg/dL (<2.0)
[2020-05-21 07:37] LABS: CREATININE URINE 48.8 mg/dL (Not Estab.); MICROALBUMIN URINE 42.4 ug/mL (Not Estab.)
== END ==
LOC: OD 12:02
PROVIDERS: ATTEND Internal Medicine Nephrology
DX: N18.4 Chronic kidney disease, stage 4 (severe) (principal); D63.1 Anemia in chronic kidney disease
CPT/HCPCS: 36415; 80069; 81001; 82043; 82306; 82570; 83970; 85025